=== PATIENT | female | born 1985 | race Caucasian/White ===

== ENCOUNTER 2016-10-21 06:23 | Day surgery (SDC) | payer OTHER ==
[2016-10-21] VITALS (11 sets, daily range): BP systolic 104–131; BP diastolic 65–80; PULSE 74–92; TEMP 97.6–98.5
[~2016-10-21] VITALS: Ht 167.6 cm; Wt 73.2 kg
[2016-10-21] MEDS ORDERED: ZOFRAN 4MG T4 MG/TAB PO (07:23)
[2016-10-21] MEDS ORDERED: AMBIEN 5MG TABLE5 MG PO (07:23)
[2016-10-22 00:53] VITALS: BP 110/74; PULSE 75; TEMP 97.3
[2016-10-22 04:37] VITALS: BP 94/54; PULSE 71; TEMP 98.3
[2016-10-22 08:00] VITALS: PULSE 67
[2016-10-22 08:43] VITALS: BP 96/53; PULSE 86; TEMP 97.8
== END 2016-10-22 13:30 | disposition home or self-care (01) ==
LOC: SDCO 06:23 → MEDICAL 12:09 → SDCO 10-22 13:30
DX: N20.0 Calculus of kidney (principal); F17.210 Nicotine dependence, cigarettes, uncomplicated; Z90.49 Acquired absence of other specified parts of digestive tract; Z98.51 Tubal ligation status; Z90.710 Acquired absence of both cervix and uterus; Z90.722 Acquired absence of ovaries, bilateral; Z80.9 Family history of malignant neoplasm, unspecified
CPT/HCPCS: OP; C1769; C2617; G0378; J0360; J0690; J1170; J2270; J2405; J2550; J2704; J3010; J7070; J7120; Q9967

== ENCOUNTER 2017-01-24 05:13 | Day surgery (SDC) | payer OTHER ==
[~2017-01-24] VITALS: Ht 167.6 cm; Wt 74.9 kg
[2017-01-24] VITALS (7 sets, daily range): BP systolic 103–126; BP diastolic 69–80; PULSE 71–85; TEMP 97.5–98
[~2017-01-24 05:13] MED LIST: AMBIEN 5MG TABLE5 MG PO; ZOFRAN 4MG T4 MG/TAB PO
[2017-01-24] MEDS ORDERED: HCTZ 25MG TAB25 MG PO (06:38)
[2017-01-24] MEDS ORDERED: CEFTIN500 MG PO (06:38)
[2017-01-24] MEDS ORDERED: NORCO 325 MG-51 TAB PO (06:38)
== END 2017-01-24 11:30 | disposition home or self-care (01) ==
LOC: SDCO 05:13
DX: N20.2 Calculus of kidney with calculus of ureter (principal); G47.00 Insomnia, unspecified; I10 Essential (primary) hypertension; F17.210 Nicotine dependence, cigarettes, uncomplicated; Z90.49 Acquired absence of other specified parts of digestive tract; Z90.710 Acquired absence of both cervix and uterus; Z90.721 Acquired absence of ovaries, unilateral; Z87.442 Personal history of urinary calculi
CPT/HCPCS: C1769; C2617; J1100; J1885; J2405; J2704; J3010; J7120; Q9967

== ENCOUNTER 2017-04-07 05:22 | Day surgery (SDC) | payer OTHER ==
[~2017-04-07] VITALS: Ht 167.6 cm; Wt 78.3 kg
[~2017-04-07 05:22] MED LIST changes: +CEFTIN500 MG PO; +HCTZ 25MG TAB25 MG PO; +NORCO 325 MG-51 TAB PO
[2017-04-07 05:59] VITALS: BP 122/71; PULSE 87; TEMP 97.9
[2017-04-07 09:15] VITALS: BP 114/81; PULSE 94; TEMP 98.1
[2017-04-07 09:21] VITALS: TEMP 97.7
[2017-04-07 09:30] VITALS: BP 119/82; PULSE 82
[2017-04-08] MEDS ORDERED: CEPHALEXIN250 M1 PO (22:54)
[2017-04-08] MEDS ORDERED: CEPHALEXIN500 M1 PO (22:55)
== END 2017-04-07 10:00 | disposition home or self-care (01) ==
LOC: SDCO 05:22
DX: N20.0 Calculus of kidney (principal); N29 Other disorders of kidney and ureter in diseases classified elsewhere; I10 Essential (primary) hypertension; G47.00 Insomnia, unspecified; F17.210 Nicotine dependence, cigarettes, uncomplicated; Z90.49 Acquired absence of other specified parts of digestive tract; Z90.710 Acquired absence of both cervix and uterus; Z90.722 Acquired absence of ovaries, bilateral; Z88.0 Allergy status to penicillin; Z88.1 Allergy status to other antibiotic agents; Z88.3 Allergy status to other anti-infective agents
CPT/HCPCS: C1769; J0690; J1100; J1940; J2405; J2704; J3010; J7120

== ENCOUNTER 2017-04-08 22:29 | Inpatient (IN) | payer OTHER ==
[~2017-04-08] VITALS: Ht 167.6 cm; Wt 80.8 kg
[2017-04-08] MEDS ORDERED: CEPHALEXIN250 M1 PO (22:54)
[2017-04-08] MEDS ORDERED: CEPHALEXIN500 M1 PO (22:55)
[2017-04-08 23:12] LABS: COLLECTION METHOD CLEAN CATCH
[2017-04-08 23:32] LABS: AMORPHOUS CRYSTAL Present /uL; MUCOUS Present /lpf; PH 5 (5-8); URINE APPEARANCE Cloudy; URINE BACTERIA Occasional /hpf; URINE BILIRUBIN Negative (NEGATIVE); URINE BLOOD 3+ (NEGATIVE); URINE CALCIUM OXALATE CRYSTAL Present /hpf; URINE COLOR Yellow; URINE GLUCOSE Negative (NEGATIVE); URINE KETONE Negative (NEGATIVE); URINE LEUKOCYTE ESTERASE 2+ (NEGATIVE); URINE NITRATE Negative (NEGATIVE); URINE PROTEIN(semi-quant) 2+ (NEGATIVE); URINE RBC >50 /hpf
[2017-04-08 23:35] LABS: BASO # 0.1 (0.0-0.2); BASO % 0.3 % (0.0-2.0); EOS % 0.1 % (0-4.0); GRAN % 71.3 % (42.2-75.2); HEMATOCRIT 37.5 % (37.0-47.0); HEMOGLOBIN 12.6 g/dl (12.5-16.0); LYMPH # 3.3 (1.2-3.4); LYMPH % 21.3 % (20.0-51.0); MEAN CELL VOLUME 90 fl (80.0-100.0); MEAN CORPUSCULAR HEMOGLOBIN 30 pg (27.0-31.0); MEAN CORPUSCULAR HGB CONC 34 g/dl (33.0-37.0); MEAN PLATELET VOLUME 10.5 fl (7.4-10.4); MONO % 6.7 % (1.7-9.3); PLATELET COUNT 211 K/mm3 (130-400); RED BLOOD COUNT 4.15 M/mm3 (4.10-5.30); REDCELL DISTRIBUTION WIDTH-CV 14.1 % (11.5-14.5)
[2017-04-08 23:49] LABS: ALBUMIN 4.2 gm/dL (3.5-5.0); BILIRUBIN,TOTAL 0.5 mg/dL (0.0-1.0); C-REACTIVE PROTEIN 4.6 mg/dL (0.0-0.9); CALCIUM 9.1 mg/dL (8.4-10.2); CREATININE, serum 0.92 mg/dL (0.52-1.25); POTASSIUM 3.2 mmol/L (3.4-5.0); TOTAL PROTEIN 7.3 gm/dL (6.4-8.2)
[2017-04-09] VITALS (14 sets, daily range): BP systolic 100–130; BP diastolic 51–72; PULSE 92–125; TEMP 98–101.1
[2017-04-09 13:05] LABS: BASO # 0.1 (0.0-0.2); BASO % 0.3 % (0.0-2.0); LYMPH # 1.8 (1.2-3.4); LYMPH % 11.7 % (20.0-51.0); MEAN CELL VOLUME 91 fl (80.0-100.0); MEAN CORPUSCULAR HGB CONC 34 g/dl (33.0-37.0); MEAN PLATELET VOLUME 10.8 fl (7.4-10.4); MONO # 1.3 (0.1-0.6); MONO % 8.6 % (1.7-9.3); PLATELET COUNT 186 K/mm3 (130-400); RED BLOOD COUNT 3.83 M/mm3 (4.10-5.30); REDCELL DISTRIBUTION WIDTH-CV 14.2 % (11.5-14.5)
[2017-04-09 13:07] LABS: HEMATOCRIT 34.9 % (37.0-47.0); HEMOGLOBIN 11.8 g/dl (12.5-16.0); MEAN CORPUSCULAR HEMOGLOBIN 31 pg (27.0-31.0)
[2017-04-09 13:16] LABS: CALCIUM 8.6 mg/dL (8.4-10.2); CREATININE, serum 0.93 mg/dL (0.52-1.25); POTASSIUM 3.6 mmol/L (3.4-5.0)
[2017-04-10 02:46] VITALS: BP 91/56; PULSE 71; TEMP 97.6
[2017-04-10 05:34] VITALS: BP 97/55; PULSE 95; TEMP 97.2
[2017-04-10 08:25] VITALS: TEMP 97.6
[2017-04-10 10:00] VITALS: BP 102/60; PULSE 77; TEMP 98
== END 2017-04-10 14:10 | disposition home or self-care (01) | DRG 660 ==
LOC: COL.ER 22:29 → SURG 04-09 00:04
PROVIDERS: Emergency Medicine; Urology
PROC: 0T748DZ Dilation of Left Kidney Pelvis with Intraluminal Device, Via Natural or Artificial Opening Endoscopic (ICD-10-PCS; principal; 2017-04-09 13:30)
PROC: 0T738DZ Dilation of Right Kidney Pelvis with Intraluminal Device, Via Natural or Artificial Opening Endoscopic (ICD-10-PCS; 2017-04-09 13:30)
PROC: BT14ZZZ Fluoroscopy of Kidneys, Ureters and Bladder (ICD-10-PCS; 2017-04-09 13:30)
DX: N13.6 Pyonephrosis (principal); Q61.5 Medullary cystic kidney; B95.2 Enterococcus as the cause of diseases classified elsewhere
CPT/HCPCS: C1769; C2617; J0692; J1100; J1170; J2405; J2550; J2704; J3010; J7030; J7120; Q9967

== ENCOUNTER 2018-01-11 12:32 | Day surgery (SDC) | payer OTHER ==
[~2018-01-11] VITALS: Ht 167.6 cm; Wt 76.4 kg
[~2018-01-11 12:32] MED LIST changes: +CEPHALEXIN250 M1 PO; +CEPHALEXIN500 M1 PO
[2018-01-11 13:22] VITALS: BP 114/71; PULSE 89; TEMP 98.3
[2018-01-11] MEDS ORDERED: FLOMAX 0.40.4 MG/CAP PO (13:33)
[2018-01-11] MEDS ORDERED: ZANAFLEX 4MG TAB4 MG PO (13:33)
[2018-01-11 16:50] VITALS: TEMP 97.6
[2018-01-11 17:05] VITALS: BP 116/80; PULSE 85
[2018-01-11 17:20] VITALS: BP 111/76; PULSE 84
[2018-01-11 17:50] VITALS: BP 108/63; PULSE 83
[2018-01-11 18:15] VITALS: BP 99/74; PULSE 63
== END 2018-01-11 19:11 | disposition home or self-care (01) ==
LOC: SDCO 12:32
DX: N20.0 Calculus of kidney (principal); G47.00 Insomnia, unspecified; Q61.5 Medullary cystic kidney; F17.210 Nicotine dependence, cigarettes, uncomplicated
CPT/HCPCS: C1769; C2617; J0690; J1100; J1170; J1885; J2405; J2704; J3010; J7120

== ENCOUNTER 2018-04-24 14:00 | Emergency (ER) | payer OTHER, MEDICAID ==
[~2018-04-24] VITALS: Ht 167.6 cm; Wt 77.2 kg
[~2018-04-24 14:00] MED LIST changes: +FLOMAX 0.40.4 MG/CAP PO; +ZANAFLEX 4MG TAB4 MG PO
[2018-04-24 14:07] VITALS: TEMP 98.4
[2018-04-24 14:36] LABS: BASO # 0.1 (0.0-0.2); BASO % 0.5 % (0.0-2.0); EOS # 0.1 (0.0-0.7); EOS % 1.4 % (0-4.0); GRAN # 4.3 (1.4-6.5); GRAN % 43.4 % (42.2-75.2); HEMATOCRIT 40.6 % (37.0-47.0); HEMOGLOBIN 14.1 g/dl (12.5-16.0); LYMPH # 4.9 (1.2-3.4); LYMPH % 49.2 % (20.0-51.0); MEAN CELL VOLUME 89 fl (80.0-100.0); MEAN CORPUSCULAR HEMOGLOBIN 31 pg (27.0-31.0); MEAN CORPUSCULAR HGB CONC 35 g/dl (33.0-37.0); MEAN PLATELET VOLUME 10.6 fl (7.4-10.4); MONO # 0.5 (0.1-0.6); MONO % 5.3 % (1.7-9.3); PLATELET COUNT 256 K/mm3 (130-400); RED BLOOD COUNT 4.54 M/mm3 (4.10-5.30); REDCELL DISTRIBUTION WIDTH-CV 12.8 % (11.5-14.5)
[2018-04-24 14:57] LABS: ALBUMIN 4.2 gm/dL (3.5-5.0); BILIRUBIN,TOTAL 0.3 mg/dL (0.0-1.0); C-REACTIVE PROTEIN 1.2 mg/dL (0.0-0.9); CALCIUM 9.5 mg/dL (8.4-10.2); CREATININE, serum 0.79 mg/dL (0.52-1.25); POTASSIUM 4.3 mmol/L (3.4-5.0); TOTAL PROTEIN 7.8 gm/dL (6.4-8.2)
[2018-04-24 15:13] LABS: COLLECTION METHOD CLEAN CATCH
[2018-04-24 15:28] LABS: MUCOUS Present /lpf; PH 6 (5-8); URINE APPEARANCE Hazy; URINE BACTERIA Rare /hpf; URINE BILIRUBIN Negative (NEGATIVE); URINE BLOOD 3+ (NEGATIVE); URINE COLOR Yellow; URINE GLUCOSE Negative (NEGATIVE); URINE KETONE Negative (NEGATIVE); URINE LEUKOCYTE ESTERASE Negative (NEGATIVE); URINE NITRATE Negative (NEGATIVE); URINE PROTEIN(semi-quant) Negative (NEGATIVE); URINE RBC >50 /hpf; URINE UROBILINOGEN Negative (NEGATIVE)
[2018-04-24] MEDS ORDERED: CEPHALEXIN500 M1 PO (16:12)
[2018-04-24 16:22] VITALS: BP 120/86; PULSE 83
== END 2018-04-24 16:24 | disposition home or self-care (01) ==
LOC: COL.ER 14:00
PROVIDERS: Physician Assistant
DX: R10.9 Unspecified abdominal pain (principal); F17.210 Nicotine dependence, cigarettes, uncomplicated; Z90.710 Acquired absence of both cervix and uterus; Z87.442 Personal history of urinary calculi; Z90.49 Acquired absence of other specified parts of digestive tract; Z98.51 Tubal ligation status
CPT/HCPCS: J0696; J1170; J2405; J7030

== ENCOUNTER 2018-10-25 14:37 | Day surgery (SDC) | payer OTHER, MEDICARE ==
[~2018-10-25] VITALS: Ht 167.6 cm; Wt 76.0 kg
[2018-10-25] VITALS (9 sets, daily range): BP systolic 97–119; BP diastolic 52–86; PULSE 62–75; TEMP 98.5
== END 2018-10-25 22:00 | disposition home or self-care (01) ==
LOC: SDCO 14:37
DX: R10.12 Left upper quadrant pain (principal); Q61.5 Medullary cystic kidney; Z90.49 Acquired absence of other specified parts of digestive tract; G47.00 Insomnia, unspecified; Z79.899 Other long term (current) drug therapy; Z98.51 Tubal ligation status; Z88.1 Allergy status to other antibiotic agents; Z88.0 Allergy status to penicillin; Z88.2 Allergy status to sulfonamides; I10 Essential (primary) hypertension; Z87.442 Personal history of urinary calculi; Z90.710 Acquired absence of both cervix and uterus; F17.210 Nicotine dependence, cigarettes, uncomplicated
CPT/HCPCS: C1769; C2617; J0690; J1100; J1170; J2405; J2704; J3010; J7120; Q9967

== ENCOUNTER 2019-11-21 14:01 | Day surgery (SDC) | payer OTHER, MEDICARE ==
[~2019-11-21] VITALS: Ht 167.6 cm; Wt 64.9 kg
[2019-11-21] VITALS (7 sets, daily range): BP systolic 114–126; BP diastolic 69–78; PULSE 58–81; TEMP 97.2–97.9
[2019-11-21] MEDS ORDERED: NORCO 325 MG-7.1 TAB PO (15:03)
--- NOTE | 2019-11-21 17:35 | NUR ---
The patient was taken back to surgery via cart at this [facility]. The patient's chart was sent with her to surgery. The patient's belongings will be taken over to the recovery room and will be transferred with her to the 3rd floor post operatively.
--- NOTE | 2019-11-21 19:00 | NUR ---
Pt is now back to the floor. Received report from CATE Cedeno. Pt was brought to the floor via stretcher. Pt is at bedside. Pt has no complaints of pain at this time. Pt does have a string from the procedure that is in place at this time. Pt has her call light within reach.
--- NOTE | 2019-11-21 19:45 | NUR ---
Pt has been able to tolerate ice chips, water and jello. Pt also had a meal tray and ate 80% of her tray without having any nausea. Pt has been ambulating from the bed to the restroom. Pt vitals are within normal limits. Pt stated that she would like to go home as soon as she can. Pt stil has string from procedure in the correct place. Pt has her call light within reach. Pt has no complaints of pain at this time.
--- NOTE | 2019-11-21 20:00 | NUR ---
Pt IV was removed at this time. Pt will call once she is done getting her clothes on. Her is still at her bedside. Pt was going to call the nurse station when she was dressed so that she could be ready to discharge home.
--- NOTE | 2019-11-21 20:12 | NUR ---
Pt was given all her discharge information. She was given her health care summary and educatin about the procedures that she had done. Pt was aware that she needed to do a follow up with her doctor. Pt was also informed about things to look for and when to contact her doctor. Pt is currently going downstairs and she will call the nurse station when she is ready to go downstaris.
--- NOTE | 2019-11-21 20:22 | NUR ---
Pt was rolled out via wheelchair by the aide. Pt stated that she had very little pain and didn't feel like she needed anything. Pt has all her belongings and has been given her packet of information.
== END 2019-11-21 20:22 | disposition home or self-care (01) ==
LOC: SDCO 14:01 → SURG 18:54 → SDCO 20:22
DX: N28.89 Other specified disorders of kidney and ureter (principal); F17.210 Nicotine dependence, cigarettes, uncomplicated; Z90.710 Acquired absence of both cervix and uterus; Z90.49 Acquired absence of other specified parts of digestive tract; Z90.89 Acquired absence of other organs; Z79.891 Long term (current) use of opiate analgesic; Z88.0 Allergy status to penicillin; Z88.1 Allergy status to other antibiotic agents; Z88.2 Allergy status to sulfonamides; Z80.9 Family history of malignant neoplasm, unspecified; Z11.59 Encounter for screening for other viral diseases
CPT/HCPCS: OP; C1769; C2617; J0690; J1100; J1885; J2405; J2704; J3010; Q9967

== ENCOUNTER 2020-06-20 13:55 | Day surgery (SDC) | payer MEDICARE, OTHER ==
[~2020-06-20] VITALS: Ht 167.6 cm; Wt 67.7 kg
[~2020-06-20 13:55] MED LIST changes: +NORCO 325 MG-7.1 TAB PO
[2020-06-20] MEDS ORDERED: OXYCONTIN 20MG20 MG PO (14:45)
[2020-06-20 14:46] VITALS: BP 121/76; PULSE 83; TEMP 99.3
[2020-06-20] MEDS ORDERED: NORCO 325 MG-101 TAB PO (14:46)
[2020-06-20] MEDS ORDERED: DITROPAN XL 5MG5 M1 PO (14:46)
[2020-06-20 19:00] VITALS: BP 96/69; PULSE 63; TEMP 98.9
[2020-06-20 19:15] VITALS: BP 99/68; PULSE 75
[2020-06-20 19:30] VITALS: BP 107/52; PULSE 81
--- NOTE | 2020-06-20 19:30 | NUR ---
Pt. sitting up in bed eating. Pt. is A&OX3, assessment complete. INT to rt. hand patent. Vitals stable. Pt. denies pain or other needs.
[2020-06-20 19:45] VITALS: BP 106/71; PULSE 86
--- NOTE | 2020-06-20 19:55 | NUR ---
Pt. has met discharge criteria. Vitals stable. Discharge paperwork reviewed with pt. Pt. voices understanding. INT discontined from rt. hand. Pt. dressed and escorted out by this nurse.
== END 2020-06-20 19:55 | disposition home or self-care (01) ==
LOC: SDCO 13:55 → SURG 18:45 → SDCO 19:55
DX: N20.0 Calculus of kidney (principal); Q61.5 Medullary cystic kidney; G47.00 Insomnia, unspecified; F17.210 Nicotine dependence, cigarettes, uncomplicated; Z90.49 Acquired absence of other specified parts of digestive tract; Z90.710 Acquired absence of both cervix and uterus; Z90.89 Acquired absence of other organs; Z98.51 Tubal ligation status; Z79.899 Other long term (current) drug therapy; Z88.1 Allergy status to other antibiotic agents; Z88.2 Allergy status to sulfonamides; Z88.8 Allergy status to other drugs, medicaments and biological substances; Z88.0 Allergy status to penicillin; Z20.822 Contact with and (suspected) exposure to COVID-19; Z87.442 Personal history of urinary calculi
CPT/HCPCS: OP; C1769; C2617; J0690; J1100; J2405; J2704; J3010; J7120

== ENCOUNTER 2020-11-07 12:58 | Day surgery (SDC) | payer MEDICARE, OTHER ==
[~2020-11-07] VITALS: Ht 167.6 cm; Wt 69.6 kg
[~2020-11-07 12:58] MED LIST changes: +DITROPAN XL 5MG5 M1 PO; +NORCO 325 MG-101 TAB PO; +OXYCONTIN 20MG20 MG PO
[2020-11-07 13:31] VITALS: BP 117/66; PULSE 97; TEMP 97.5
[2020-11-07] MEDS ORDERED: ROXICODONE 55 MG/TAB PO (13:43)
[2020-11-07] MEDS ORDERED: FLOMAX 0.40.4 MG/CAP PO (13:44)
[2020-11-07 16:15] VITALS: BP 102/68; PULSE 83; TEMP 97.9
--- NOTE | 2020-11-07 16:15 | NUR ---
PATIENT ARRIVED FROM PACU ON CART TO BAY #1. PATIENT IS DROWSY AND STATES URGE TO VOID. VITALS OBTAINED AND ARE STABLE. PATIENT WAS HELPED UP BY +2 RN AND SAT AT BEDSIDE TO ASSESS FOR DIZZYNESS/LIGHTHEADEDNESS. PATIENT DENIED. PATIENT WAS ABLE TO AMBULATE TO HALLWAY BATHROOM. GAIT IS UNSTEADY, BUT OK. PATIENT HAD PRODUCTIVE VOID. STATES DESIRE FOR SPRITE WITH ICE. VITALS OBATINED. CALL PRADO WITHIN REACH. WILL CONTINUE TO MONITOR.
[2020-11-07 16:30] VITALS: BP 115/74; PULSE 88
--- NOTE | 2020-11-07 16:30 | NUR ---
PATIENT ASKED FOR APPLESAUCE AND TOLERATED IT WELL. DENIES N/V. VITAL SIGNS OBTAINED AND REMAINS STABLE. PATIENT STATES SOME DISCOMFORT AND PAIN. HOWEVER REFUSED PAIN MEDICATION. WILL CONTINUE TO MONITOR.
[2020-11-07 16:45] VITALS: BP 105/67; PULSE 80
[2020-11-07 17:00] VITALS: BP 120/78; PULSE 82
--- NOTE | 2020-11-07 17:02 | NUR ---
PATIENT AMBULATED TO WITH CATE OCHOA. WAS ABLE TO VOID AND EXPRESSED DESIRE TO BE DISCHARGED. STEADY GAIT. ALERT AND ORIENTED X3. PATIENT HAS MET CRITERIA. CALL PRADO IN REACH. RN TO START DISCHARGE PAPERWORK AT THIS TIME. WILL CONTINUE TO MONITOR.
--- NOTE | 2020-11-07 17:19 | NUR ---
PATIENT STATES DESIRE TO BE DISCHARGED. IV DISCONTINUED AT THIS TIME. VITALS OBATINED AND STABLE. PATIENT REFUSED PAIN MEDICATION. DISCHARGE INFORMATION REVIEWED WITH PATIENT. PATIENT VERBALIZED UNDERSTANDING. PATIENTS MOTHER IS PRESENT. WILL CONTINUE TO MONITOR AND PREPARE FOR DISHCARGE.
--- NOTE | 2020-11-07 17:30 | NUR ---
PATIENT AMBULATED TO ER ENTRENCE FOR DISCHARGE. REFUSED WHEELCHAIR. HAS DISCHARGE INSTRUCTIONS AND BELONGING. TRANSFERRING INTO THE CARE OF HER MOTHER, A RESPONSIBLE ADULT WHO IS DRIVING. STEADY GAIT.
== END 2020-11-07 17:30 ==
LOC: SDCO 12:58
DX: N20.1 Calculus of ureter (principal); N30.00 Acute cystitis without hematuria; G47.00 Insomnia, unspecified; F17.210 Nicotine dependence, cigarettes, uncomplicated; Z20.822 Contact with and (suspected) exposure to COVID-19; Z79.899 Other long term (current) drug therapy; Z90.710 Acquired absence of both cervix and uterus; Z98.51 Tubal ligation status; Z90.49 Acquired absence of other specified parts of digestive tract
CPT/HCPCS: C1769; C2617; J0690; J1100; J2405; J2704; J3010; J7120; Q9967

== ENCOUNTER 2021-01-07 11:48 | Day surgery (SDC) | payer MEDICARE, OTHER ==
[~2021-01-07] VITALS: Ht 167.6 cm; Wt 69.8 kg
[~2021-01-07 11:48] MED LIST changes: +ROXICODONE 55 MG/TAB PO
[2021-01-07 12:48] VITALS: BP 119/72; PULSE 68; TEMP 97.7
--- NOTE | 2021-01-07 14:15 | NUR ---
The patient was taken back via cart to the operating room at this time. The patient's chart was sent with her to surgery.
[2021-01-07 15:45] VITALS: BP 106/67; PULSE 77; TEMP 97.6
--- NOTE | 2021-01-07 15:45 | NUR ---
The patient arrived back to [facility] from the recovery room at this time. The patient appears alert and oriented and reports minimal pain at this time. The patient requests to try some sprite and mary jane crackers at this time. The patient's mother is at her bedside at this time. The patient requests to use the bathroom and did so using a steady gait and voided without difficulty.
[2021-01-07 16:00] VITALS: BP 106/83; PULSE 76
--- NOTE | 2021-01-07 16:00 | NUR ---
The patient appears to be tolerating the food and drink well. The patient has a bear hugger in place for complaints of feeling cold. Will continue to monitor the patient.
[2021-01-07 16:15] VITALS: BP 98/59; PULSE 75
--- NOTE | 2021-01-07 16:20 | NUR ---
Discharge instructions were reviewed with the patient and her mother at this time. They both verbalized understanding and have no questions for the nurse at this time. The patient's IV to her right hand was removed and a pressure dressing was applied to the site. The nurse instructed the patient to get dressed and notify the staff when she is ready to be escorted out.
--- NOTE | 2021-01-07 16:35 | NUR ---
The patient was escorted out via wheelchair to a private vehicle by CATE Dumont. The patient's belongings and discharge paperwork were sent with her. The patient's mother is present to drive her home.
== END 2021-01-07 16:35 | disposition home or self-care (01) ==
LOC: SDCO 11:48
DX: N20.0 Calculus of kidney (principal); G47.00 Insomnia, unspecified; Q61.5 Medullary cystic kidney; F17.290 Nicotine dependence, other tobacco product, uncomplicated; Z90.49 Acquired absence of other specified parts of digestive tract; Z79.899 Other long term (current) drug therapy; Z90.710 Acquired absence of both cervix and uterus; Z90.89 Acquired absence of other organs; Z79.891 Long term (current) use of opiate analgesic
CPT/HCPCS: C1769; C2617; J0690; J1100; J1170; J2405; J2704; J3010; J7120

== ENCOUNTER 2021-05-28 05:42 | Day surgery (SDC) | payer MEDICARE, OTHER ==
[~2021-05-28] VITALS: Ht 167.6 cm; Wt 70.5 kg
[2021-05-28] MEDS ORDERED: NEURONTIN300 MG/CAP PO (06:12)
[2021-05-28] MEDS ORDERED: ZOFRAN ODT4 MG PO (06:25)
[2021-05-28] MEDS ORDERED: PERCOCET 325 MG1 TA2 PO (06:25)
[2021-05-28 06:26] VITALS: BP 137/86; PULSE 99; TEMP 97.8
[2021-05-28 09:05] VITALS: TEMP 97.7
[2021-05-28 09:15] VITALS: BP 120/76; PULSE 87
--- NOTE | 2021-05-28 09:15 | NUR ---
Patient returns to room 8 per cart from PACU accompanied by Sruthi ESPOSITO and is awake and alert. IV fluids infusing and site is free of redness or swelling. States she is needing up to urinate. IV to INT and ambulatory to the bathroom. Voids and returns to room. Taking Sprite and crackers.
[2021-05-28 09:30] VITALS: BP 114/79; PULSE 89
--- NOTE | 2021-05-28 09:30 | NUR ---
Tolerates snack. Denies pain or nausea.
[2021-05-28 09:45] VITALS: BP 108/67; PULSE 87
--- NOTE | 2021-05-28 09:45 | NUR ---
Patient states that she is ready for discharge. Dresses self.
--- NOTE | 2021-05-28 09:50 | NUR ---
INT discontinued and site is free of redness and swelling. Given dismissal instructions and voices understanding of these.
--- NOTE | 2021-05-28 09:56 | NUR ---
Patient dismissed to home driven by friend Brian and taken to the front door per wheelchair and assisted into vehicle with dismissal instructions in hand.
== END 2021-05-28 09:56 | disposition home or self-care (01) ==
LOC: SDCO 05:42
DX: N20.0 Calculus of kidney (principal); F17.210 Nicotine dependence, cigarettes, uncomplicated
CPT/HCPCS: C1769; J0690; J1100; J2405; J2704; J3010; J7120; Q9967